=== PATIENT | female | born 1935 | race African-American/Black ===

== ENCOUNTER 2019-12-16 09:50 | Emergency (ER) | payer OTHER ==
[~2019-12-16] VITALS: Ht 157.5 cm; Wt 73.0 kg
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
[2019-12-16] MEDS ORDERED: ACETAMINOPHEN 325 MG TABLET PO ONE (10:30)
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
[2019-12-16 11:08] VITALS: BP 168/92
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
== END 2019-12-16 11:47 | disposition home or self-care (01) ==
LOC: ER 09:50
DX: S00.83XA Contusion of other part of head, initial encounter (principal); S80.02XA Contusion of left knee, initial encounter; M25.572 Pain in left ankle and joints of left foot; R60.0 Localized edema; E11.9 Type 2 diabetes mellitus without complications; E78.00 Pure hypercholesterolemia, unspecified; I10 Essential (primary) hypertension; E03.9 Hypothyroidism, unspecified; Z90.710 Acquired absence of both cervix and uterus; V09.9XXA Pedestrian injured in unspecified transport accident, initial encounter; Y93.89 Activity, other specified; Y92.413 State road as the place of occurrence of the external cause; Y99.8 Other external cause status
CPT/HCPCS: 70450; 71045; 72125; 72170; 73562; 73610; 99285

== ENCOUNTER → 2020-01-06 | Outpatient (CLI) | payer MEDICARE, OTHER ==
[2019-12-16 11:08] VITALS: BP 168/92
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
== END ==
LOC: DXRAD 11:01
PROVIDERS: ATTEND Family Medicine
DX: M19.072 Primary osteoarthritis, left ankle and foot (principal); M77.32 Calcaneal spur, left foot; R22.42 Localized swelling, mass and lump, left lower limb
CPT/HCPCS: 73630